=== PATIENT | male | born 1960 | race Caucasian/White ===

== ENCOUNTER 2020-10-07 13:59 | Observation (INO) ==
[2020-10-07] MEDS ORDERED: Isovue-370 500 ML BOTTLE IVP ONE (14:24)
[2020-10-07] MEDS ORDERED: 0.9 % Sodium Chloride 1,000 ML IVC ONE (14:52)
[2020-10-07 15:03] LABS: Basophils % 0.3 %; Hematocrit 40.7 % (37.5-50.1); Hemoglobin 13.8 g/dL (12.9-16.9); Immature Granulocytes % 0.6 % (0-4); Lymphocytes # 0.8 K/mcL (0.6-4.6); Lymphocytes % 10.7 %; Mean Corpuscular HGB Conc 33.9 g/dL (31.6-35.5); Mean Corpuscular Hemoglobin 30.5 pg (28.0-33.3); Mean Corpuscular Volume 89.8 fL (83.0-100.0); Mean Platelet Volume 8.4 fL (9.4-12.4); Monocytes # 0.3 K/mcL (0.0-1.3); Neutrophils # 6.6 K/mcL (1.6-8.9); Platelet Count 293 K/mcL (140-400); Red Blood Count 4.53 M/mcL (4.19-5.50); Red Cell Distribution Width 11.9 % (11.5-14.5); Segmented Neutrophils % 84.4 %; White Blood Count 7.8 K/mcL (4.3-11.1)
[2020-10-07 15:19] LABS: BUN/Creatinine Ratio 19 (6-26); Blood Urea Nitrogen 17 mg/dL (6-20); Calcium 9.3 mg/dL (8.6-10.3); Carbon Dioxide 26 mEq/L (23-29); Chloride 100 mEq/L (98-107); Glucose 124 mg/dL (70-105); Osmolality,Calculated 283 (280-300); Potassium 3.9 mEq/L (3.5-5.1); Sodium 135 mEq/L (136-145); Troponin I < 0.03 ng/mL (< 0.04); eGFR For African Americans > 60 (> 60); eGFR For Non-African Americans > 60 (> 60)
[2020-10-07] MEDS ORDERED: Naloxone 0.4 MG/ML INJ IVP PRN (17:39)
[2020-10-07] MEDS ORDERED: Ondansetron 4 MG/2 ML VIAL IVP PRN (17:39)
[2020-10-07] MEDS: Dexamethasone 4 MG/ML VIAL IVP SCH (18:25)
[2020-10-07] MEDS: Ipratropium 1 PUFF INHALER IH SCH ×3 (18:39→23:18)
[2020-10-07] MEDS ORDERED: Ipratropium 1 PUFF INHALER IH SCH (20:00)
[2020-10-07] MEDS: Benzonatate 100 MG CAPSULE PO PRN (20:05)
[2020-10-07] MEDS: Acetaminophen 325 MG TABLET PO PRN (20:06)
[2020-10-08 01:54] LABS: Basophils % 0.1 %; Hematocrit 40.3 % (37.5-50.1); Hemoglobin 13.4 g/dL (12.9-16.9); Lymphocytes # 0.5 K/mcL (0.6-4.6); Lymphocytes % 6.8 %; Mean Corpuscular HGB Conc 33.3 g/dL (31.6-35.5); Mean Corpuscular Hemoglobin 30.3 pg (28.0-33.3); Mean Corpuscular Volume 91.2 fL (83.0-100.0); Mean Platelet Volume 8.4 fL (9.4-12.4); Monocytes # 0.2 K/mcL (0.0-1.3); Monocytes % 2.3 %; Neutrophils # 6.5 K/mcL (1.6-8.9); Platelet Count 288 K/mcL (140-400); Red Blood Count 4.42 M/mcL (4.19-5.50); Red Cell Distribution Width 11.9 % (11.5-14.5); Segmented Neutrophils % 89.8 %; White Blood Count 7.3 K/mcL (4.3-11.1)
[2020-10-08 03:21] LABS: Alanine Aminotransferase 77 Units/L (7-52); Albumin 3.9 g/dL (3.5-5.7); Albumin/Globulin Ratio 1.4 (1.1-2.2); Alkaline Phosphatase 97 Units/L (34-104); Aspartate Amino Transferase 52 Units/L (13-39); BUN/Creatinine Ratio 20 (6-26); Bilirubin,Total 0.4 mg/dL (0.3-1.0); Blood Urea Nitrogen 16 mg/dL (6-20); Calcium 9.2 mg/dL (8.6-10.3); Carbon Dioxide 19 mEq/L (23-29); Ferritin 383 ng/mL (20-250); Globulin 2.7 g/dL (2.4-3.5); Glucose 257 mg/dL (70-105); Lactate Dehydrogenase 282 Units/L (140-271); Total Protein 6.6 g/dL (6.4-8.9); eGFR For African Americans > 60 (> 60); eGFR For Non-African Americans > 60 (> 60)
[2020-10-08 03:22] LABS: Chloride 104 mEq/L (98-107); Osmolality,Calculated 290 (280-300); Potassium 4.5 mEq/L (3.5-5.1); Sodium 135 mEq/L (136-145)
[2020-10-08] MEDS: Ipratropium 1 PUFF INHALER IH SCH ×5 (04:01→20:34)
[2020-10-08 04:02] LABS: C-Reactive Protein 42 mg/L (Less than 10)
[2020-10-08] MEDS: *HR* Enoxaparin 40 MG/0.4 ML SYRINGE SQ SCH (05:12)
[2020-10-08] MEDS: Aspirin 81 MG TAB.CHEW PO SCH (08:06)
[2020-10-08] MEDS: Dexamethasone 4 MG/ML VIAL IVP SCH (08:07)
[2020-10-08] MEDS: Benzonatate 100 MG CAPSULE PO PRN ×2 (09:05→20:44)
[2020-10-08] MEDS: Acetaminophen 325 MG TABLET PO PRN ×2 (09:05→20:44)
[2020-10-09] MEDS: Ipratropium 1 PUFF INHALER IH SCH ×4 (00:25→11:49)
[2020-10-09 05:27] LABS: Basophils % 0.3 %; Hemoglobin 12.5 g/dL (12.9-16.9); Immature Granulocytes % 1.5 % (0-4); Lymphocytes # 1.2 K/mcL (0.6-4.6); Lymphocytes % 18.2 %; Mean Corpuscular HGB Conc 32.9 g/dL (31.6-35.5); Mean Corpuscular Hemoglobin 29.6 pg (28.0-33.3); Mean Platelet Volume 8.5 fL (9.4-12.4); Monocytes # 0.5 K/mcL (0.0-1.3); Monocytes % 6.9 %; Neutrophils # 4.9 K/mcL (1.6-8.9); Platelet Count 283 K/mcL (140-400); Red Blood Count 4.22 M/mcL (4.19-5.50); Segmented Neutrophils % 73.1 %; White Blood Count 6.7 K/mcL (4.3-11.1)
[2020-10-09 05:50] LABS: Alanine Aminotransferase 132 Units/L (7-52); Albumin 3.7 g/dL (3.5-5.7); Albumin/Globulin Ratio 1.4 (1.1-2.2); Alkaline Phosphatase 93 Units/L (34-104); Aspartate Amino Transferase 73 Units/L (13-39); BUN/Creatinine Ratio 26 (6-26); Bilirubin,Direct 0.1 mg/dL (0.0-0.2); Bilirubin,Indirect 0.3 mg/dL (0.0-1.0); Bilirubin,Total 0.4 mg/dL (0.3-1.0); Blood Urea Nitrogen 21 mg/dL (6-20); Calcium 9.1 mg/dL (8.6-10.3); Carbon Dioxide 23 mEq/L (23-29); Chloride 107 mEq/L (98-107); Globulin 2.6 g/dL (2.4-3.5); Glucose 126 mg/dL (70-105); Osmolality,Calculated 293 (280-300); Potassium 3.9 mEq/L (3.5-5.1); Sodium 139 mEq/L (136-145); Total Protein 6.3 g/dL (6.4-8.9); eGFR For African Americans > 60 (> 60); eGFR For Non-African Americans > 60 (> 60)
[2020-10-09] MEDS: *HR* Enoxaparin 40 MG/0.4 ML SYRINGE SQ SCH (06:22)
[2020-10-09 06:27] LABS: Microcytosis Present (Not Present); Platelet Estimate Normal (Normal)
[2020-10-09] MEDS: Dexamethasone 4 MG/ML VIAL IVP SCH ×2 (09:42→10:03)
[2020-10-09] MEDS: Aspirin 81 MG TAB.CHEW PO SCH (09:43)
[2020-10-09 10:51] VITALS: BP 132/86
== END 2020-10-09 15:36 | disposition home or self-care (01) ==
LOC: EMEROOARM 13:59 → 2NENU 13:59 → SUATTDRO 18:05 → 2NENU 18:45
PROVIDERS: ADMIT Internal Medicine; ATTEND Internal Medicine